=== PATIENT | female | born 1960 | race Caucasian/White ===

== ENCOUNTER 2021-03-27 15:39 | Observation (INO) ==
[2021-03-27 16:35] LABS: INR 1.1; PT Patient Result 11.9 SECS (10.5-12.0); Partial Thromboplastin Time 23.1 SECS (23.8-32.1)
[2021-03-27 16:52] LABS: Albumin 3.6 G/DL (3.4-5.0); Bilirubin,Total 0.4 MG/DL (0.20-1.00); Calcium 8.5 MG/DL (8.5-10.1); Osmolality,Calculated 269.8 MOS/KG (273-304); Potassium 3.9 MMOL/L (3.5-5.1); Total Protein 7.4 G/DL (6.4-8.2)
[2021-03-27 16:53] LABS: Basophils # 0.1 10*3/uL (0.0-0.2); Basophils % 0.5 % (0.0-0.8); Eosinophils # 0.2 10*3/uL (0.0-0.87); Eosinophils % 1.6 % (0.00-10.9); Hematocrit 18.1 VOL% (35.7-47.0); Immature Granulocytes % 0.4 %; Immature Granulocytes Absolute 0.04 #; Lymphocytes # 4.1 10*3/uL (1.4-4.0); Lymphocytes % 39.1 % (21.3-54.2); Mean Corpuscular HGB Conc 24.3 GM/DL (32-36); Mean Corpuscular Volume 55.2 FL (87-102); Mean Platelet Volume 9.4 FL (9.6-12.0); Monocytes % 8.4 % (1.7-12.7); NRBC # 0.02 10*3/uL; Platelet Count 532 T/CUMM (130-400); Red Blood Count 3.28 MC/CUMM (3.8-5.5); Red Cell Distribution Width 21.8 % (9.3-17.3); White Blood Count 10.6 T/CUMM (4-12)
[2021-03-27] MEDS ORDERED: SODIUM CHLORIDE 0.9% 1,000 ML IV PRN ×2 (16:56→17:43)
[2021-03-27 16:58] LABS: Hemoglobin 4.4 GM/DL (12.0-16.0)
[2021-03-27 17:22] LABS: Anisocytosis 1+; Hypochromia 2+; Lymphocytes 31 % (20-55); Segmented Neutrophils 66 % (50-85); Total Cells Counted 100
[2021-03-27 17:23] LABS: Ovalocytes Few; Polychromasia Few; Target Cells Few; Tear Drop Cells Few
[2021-03-27 17:24] LABS: Microcytosis 1+; Platelet Estimate Increased
[2021-03-27] MEDS ORDERED: GLUCAGON 1 MG VIAL IM PRN (17:30)
[2021-03-27] MEDS ORDERED: ACETAMINOPHEN 325 MG TABLET PO PRN (17:30)
[2021-03-27] MEDS ORDERED: ONDANSETRON 4 MG/2 ML VIAL IV PRN (17:30)
[2021-03-27] MEDS ORDERED: DEXTROSE 10% 250 ML BAG IV PRN (17:30)
[2021-03-27] MEDS: PANTOPRAZOLE 40 MG TABLET PO SCH (22:36)
[2021-03-28 07:39] LABS: Basophils # 0.1 10*3/uL (0.0-0.2); Basophils % 0.6 % (0.0-0.8); Eosinophils # 0.1 10*3/uL (0.0-0.87); Eosinophils % 0.8 % (0.00-10.9); Hematocrit 27.2 VOL% (35.7-47.0); Immature Granulocytes % 0.8 %; Immature Granulocytes Absolute 0.08 #; Lymphocytes # 2.8 10*3/uL (1.4-4.0); Lymphocytes % 28.3 % (21.3-54.2); Mean Corpuscular HGB Conc 27.9 GM/DL (32-36); Mean Corpuscular Volume 61.8 FL (87-102); Mean Platelet Volume 9.2 FL (9.6-12.0); Monocytes % 6.2 % (1.7-12.7); NRBC # 0.03 10*3/uL; Neutrophils % 63.3 % (38.7-73.9); Platelet Count 548 T/CUMM (130-400); Red Cell Distribution Width 30.5 % (9.3-17.3)
[2021-03-28 07:43] LABS: Hemoglobin 7.6 GM/DL (12.0-16.0)
[2021-03-28 07:53] LABS: % Iron Saturation 2.5 % (18-50); Ferritin 2.3 ng/mL (8-252)
[2021-03-28 07:59] LABS: Folate 11.58 NG/ML (5.38-24.0); Vitamin B12 478 PG/ML (211-911)
[2021-03-28 08:00] LABS: Osmolality,Calculated 275.4 MOS/KG (273-304); Potassium 3.8 MMOL/L (3.5-5.1); Thyroid Stimulating Hormone 1.58 uIU/ml (0.358-3.74)
[2021-03-28] MEDS ORDERED: SODIUM CHLORIDE 0.9% 1,000 ML IV PRN ×2 (08:28→12:57)
[2021-03-28] MEDS: PANTOPRAZOLE 40 MG TABLET PO SCH (08:56)
[2021-03-28 10:23] LABS: Sedimentation Rate-Westergren 40 MM/HR (0-30)
[2021-03-28 10:44] LABS: Hemoglobin A1 (Alkaline) 98.1 % (96.5-98.5); Hemoglobin A2 (Alkaline) 1.9 % (1.5-3.5)
[2021-03-28 16:25] VITALS: BP 146/65
[2021-03-28 17:29] LABS: Hematocrit 31.1 VOL% (35.7-47.0); Hemoglobin 8.8 GM/DL (12.0-16.0)
[2021-03-28] MEDS ORDERED: ASCORBIC ACID 500 MG TABLET PO SCH (21:00)
[2021-03-28] MEDS ORDERED: POLYETHYLENE GLYCOL POWDER 17 GM PACK PO SCH (21:00)
[2021-03-28] MEDS ORDERED: DOCUSATE SODIUM 100 MG CAPSULE PO SCH (21:00)
[2021-03-28] MEDS ORDERED: FERROUS SULFATE 325 MG TABLET PO SCH (21:00)
[2021-03-29] MEDS ORDERED: LACTATED RINGERS 1,000 ML IV SCH (08:00)
[2021-03-29 16:41] LABS: Soluble Transf Receptor (sTfR) 48.9 mg/L (1.8 - 4.6)
== END 2021-03-28 18:00 | disposition home or self-care (01) ==
LOC: N.5E 15:39 → N.ED 15:39 → N.5E 20:10 → N.TELEN 21:00
PROVIDERS: ADMIT Hospitalist; ATTEND Hospitalist